=== PATIENT | female | born 1950 | race Caucasian/White ===

== ENCOUNTER 2022-03-15 20:42 | Emergency (ER) | payer MEDICARE, SELFPAY ==
[2022-03-15 21:19] VITALS: BP 202/102; PULSE 93; RESP 18; TEMP 36.6; O2SAT 96; BMI 29.2
== END 2022-03-15 23:48 | disposition left against medical advice (07) ==
PROVIDERS: Emergency Provider Emergency Medicine; PCP Internal Medicine
DX: M79.602 Pain in left arm (principal)
CPT/HCPCS: 99281